=== PATIENT | male | born 1940 | race Caucasian/White ===

== ENCOUNTER 2018-08-22 11:36 | Outpatient (REF) | payer MEDICARE, BC, SELFPAY ==
[2018-08-22 19:28] LABS: Anion Gap 6.1 mmol/L (3-11); BUN 24 mg/dL (7-18); CO2 29.9 mmol/L (21.0-32.0); CREATININE 0.96 mg/dL (0.70-1.30); Calcium 9.1 mg/dL (8.5-10.1); Chloride 104 mmol/L (98-107); Glucose 89 mg/dL (70-100); Potassium 4.9 mmol/L (3.5-5.1); Sodium 140 mmol/L (136-145)
== END 2018-08-22 11:56 ==
LOC: NCHCN 11:36
PROVIDERS: PCP Physician Assistant; Visit Provider Physician Assistant Medical
DX: I10 Essential (primary) hypertension (principal)
CPT/HCPCS: 80048

== ENCOUNTER 2019-11-05 11:21 | Outpatient (REF) | payer MEDICARE, BC, SELFPAY ==
[2019-11-07 11:40] LABS: HIV-1/2 Ag & Ab Screen Negative (Negative)
[2019-11-07 11:44] LABS: Hepatitis C Ab w Rflx HCV PCR Negative (Negative)
[2019-11-07 12:15] LABS: Chlamydia Result Negative (Negative); GC Result Negative (Negative)
== END 2019-11-05 11:41 ==
LOC: NCHCN 11:21
PROVIDERS: PCP Physician Assistant; Visit Provider Nurse Practitioner Family
DX: Z11.3 Encounter for screening for infections with a predominantly sexual mode of transmission (principal); Z11.4 Encounter for screening for human immunodeficiency virus [HIV]; Z11.59 Encounter for screening for other viral diseases
CPT/HCPCS: 86803; 87389; 87491; 87591

== ENCOUNTER 2020-02-27 12:24 | Outpatient (REF) | payer MEDICARE, BC, SELFPAY ==
[2020-02-27 20:44] LABS: HCT 38.8 % (40.0-50.0); HGB 12.7 g/dL (13.5-17.5); Mean Corp. HGB Concentration 32.7 g/dL (32.0-36.0); Mean Corpuscular Hemoglobin 30.7 pg (27.0-33.0); Mean Corpuscular Volume 93.7 fL (80-95); Mean Platelet Volume 11.7 fL (8.0-11.0); Platelet Count 191 x1000/uL (130-400); RBC 4.14 m/cumm (4.50-6.00); RBC Distribution Width 13.9 % (11.8-14.1); White Blood Cell Count 3.96 k/cumm (4.4-10.8)
[2020-02-27 21:16] LABS: Anion Gap 5.1 mmol/L (3-11); BUN 22 mg/dL (7-18); CO2 30.9 mmol/L (21.0-32.0); CREATININE 1.12 mg/dL (0.70-1.30); Calcium 8.8 mg/dL (8.5-10.1); Chloride 106 mmol/L (98-107); Glucose 89 mg/dL (74-106); Potassium 4.7 mmol/L (3.5-5.1); Sodium 142 mmol/L (136-145)
[2020-02-29 09:58] LABS: PSA, Screening 3.5 ng/mL (0.0-6.5)
== END 2020-02-27 12:44 ==
LOC: NCHCN 12:24
PROVIDERS: PCP Physician Assistant; Visit Provider Nurse Practitioner Family
DX: I10 Essential (primary) hypertension (principal); R23.8 Other skin changes; N40.0 Benign prostatic hyperplasia without lower urinary tract symptoms; Z12.5 Encounter for screening for malignant neoplasm of prostate; R23.3 Spontaneous ecchymoses
CPT/HCPCS: 80048; 84153; 85027

== ENCOUNTER 2020-09-11 12:39 | Outpatient (REF) | payer MEDICARE, BC, SELFPAY ==
[2020-09-15 09:54] LABS: HSV Type 1 Ab, IgG Positive (Negative); HSV Type 2 Ab, IgG Negative (Negative)
[2020-09-15 10:11] LABS: Varicella IgG Antibody Positive (See Note)
== END 2020-09-11 12:59 ==
LOC: NCHCN 12:39
PROVIDERS: PCP Physician Assistant; Visit Provider Physician Assistant
DX: Z20.828 Contact with and (suspected) exposure to other viral communicable diseases (principal); Z11.59 Encounter for screening for other viral diseases
CPT/HCPCS: 86787; 86695; 86696

== ENCOUNTER 2021-02-20 18:55 | Outpatient (REF) | payer MEDICARE, BC, SELFPAY ==
[2021-02-20 19:40] LABS: BUN 23 mg/dL (7-18); CREATININE 1.1 mg/dL (0.70-1.30); Chloride 106 mmol/L (98-107); Glucose 92 mg/dL (74-106); Magnesium 2.3 mg/dL (1.8-2.4); Potassium 4.5 mmol/L (3.5-5.1); Sodium 141 mmol/L (136-145)
== END 2021-02-20 18:56 | disposition home or self-care (01) ==
LOC: NCHCN 18:55
PROVIDERS: PCP Physician Assistant; Visit Provider Internal Medicine
DX: I10 Essential (primary) hypertension (principal); M54.31 Sciatica, right side
CPT/HCPCS: 80048; 83735

== ENCOUNTER 2022-04-16 18:32 | Outpatient (REF) | payer MEDICARE, SELFPAY ==
[2022-04-16 18:53] LABS: Anion Gap 8.1 mmol/L (3-11); BUN 19 mg/dL (7-18); CO2 27.9 mmol/L (21.0-32.0); CREATININE 1.1 mg/dL (0.70-1.30); Calcium 9.5 mg/dL (8.5-10.1); Chloride 102 mmol/L (98-107); Glucose 85 mg/dL (74-106); Potassium 4.2 mmol/L (3.5-5.1); Sodium 138 mmol/L (136-145)
== END 2022-04-16 18:33 | disposition home or self-care (01) ==
LOC: NCHCN 18:32
PROVIDERS: PCP Physician Assistant; Visit Provider Internal Medicine
DX: I10 Essential (primary) hypertension (principal)
CPT/HCPCS: 80048

== ENCOUNTER 2023-04-20 20:46 | Outpatient (REF) | payer MEDICARE, SELFPAY ==
[2023-04-20 21:20] LABS: Abs Immature Grans 0.01 10^3/uL (0.0-0.06); Absolute Basophil Count 0.05 10^3/uL (0.0-0.2); Absolute Eosinophil Count 0.06 10^3/uL (0.0-0.7); Absolute Lymphocyte Count 0.71 10^3/uL (1.2-3.4); Absolute Monocyte Count 0.39 10^3/uL (0.1-0.8); Absolute Neutrophil Count 3.21 10^3/uL (1.2-6.7); Basophils % 1.1; Eosinophils % 1.4; HCT 43.9 % (40.0-50.0); HGB 14.6 g/dL (13.5-17.5); Immature Grans % 0.2; MCH 31.2 pg (27.0-33.0); MCHC 33.3 % (32.0-36.0); MCV 94 fL (80-95); MPV 11.7 fL (8.0-11.0); Monocytes % 8.8; Neutrophils % 72.5; Platelet Count 179 10^3/uL (130-400); RBC 4.68 10^6/uL (4.36-5.78); RDW 15.4 % (11.8-14.1); RDW-SD 53.3 fL; WBC 4.43 10^3/uL (4.4-10.8)
[2023-04-20 21:34] LABS: Iron 192 ug/dL (65-175); Total Iron Binding Capacity 397 ug/dL (250-450); Transferrin Sat 48 % (20-55)
[2023-04-20 21:43] LABS: ALT 26 U/L (16-63); AST 34 U/L (15-37); Albumin 3.4 g/dL (3.4-5.0); Alkaline Phosphatase 76 U/L (46-116); Anion Gap 5.8 mmol/L (3-11); BUN 20 mg/dL (7-18); Bilirubin, Total 0.5 mg/dL (0.2-1.0); CO2 31.2 mmol/L (21.0-32.0); CREATININE 1.1 mg/dL (0.70-1.30); Calcium 9.4 mg/dL (8.5-10.1); Chloride 103 mmol/L (98-107); Estimated GFR 67.86 (mL/min/1.73m2); Ferritin 28 ng/mL (26-388); Glucose 93 mg/dL (74-106); Potassium 4.6 mmol/L (3.5-5.1); Sodium 140 mmol/L (136-145); Total Protein 7.5 g/dL (6.4-8.2)
== END 2023-04-20 20:47 | disposition home or self-care (01) ==
LOC: NCHCN 20:46
PROVIDERS: PCP Physician Assistant; Visit Provider Internal Medicine
DX: Z86.2 Personal history of diseases of the blood and blood-forming organs and certain disorders involving the immune mechanism (principal); I10 Essential (primary) hypertension; D72.819 Decreased white blood cell count, unspecified; Z77.011 Contact with and (suspected) exposure to lead; F10.10 Alcohol abuse, uncomplicated
CPT/HCPCS: 80053; 82728; 83540; 83550; 83655; 85025

== ENCOUNTER 2024-04-23 14:46 | Outpatient (REF) | payer MEDICARE, SELFPAY ==
[2024-04-23 19:25] LABS: HCT 42.7 % (40.0-50.0); HGB 14.1 g/dL (13.5-17.5); MCH 31.1 pg (27.0-33.0); MCV 94 fL (80-95); MPV 12.1 fL (8.0-11.0); Platelet Count 165 10^3/uL (130-400); RBC 4.54 10^6/uL (4.36-5.78); RDW-SD 48.4 fL; WBC 4.94 10^3/uL (4.4-10.8)
[2024-04-23 20:28] LABS: Anion Gap 5.9 mmol/L (3-11); BUN 13 mg/dL (7-18); CO2 30.1 mmol/L (21.0-32.0); Calcium 9.7 mg/dL (8.5-10.1); Calculated LDL 104 mg/dL (<100); Chloride 104 mmol/L (98-107); Cholesterol 240 mg/dL (<200); Estimated GFR 75.61 (mL/min/1.73m2); Glucose 103 mg/dL (74-106); HDL Cholesterol 128 mg/dL (40-60); Potassium 4.8 mmol/L (3.5-5.1); Sodium 140 mmol/L (136-145); Triglyceride 41 mg/dL (<150)
== END 2024-04-23 14:47 | disposition home or self-care (01) ==
LOC: NCHCN 14:46
PROVIDERS: PCP Physician Assistant; Visit Provider Internal Medicine
DX: I10 Essential (primary) hypertension (principal); E78.5 Hyperlipidemia, unspecified; R78.71 Abnormal lead level in blood; Z77.011 Contact with and (suspected) exposure to lead
CPT/HCPCS: 80048; 80061; 85027; 83655

== ENCOUNTER 2025-04-25 14:21 | Outpatient (REF) | payer MEDICARE, SELFPAY ==
[2025-04-25 19:23] LABS: Anion Gap 3.3 mmol/L (3-11); BUN 18 mg/dL (7-18); CO2 31.7 mmol/L (21.0-32.0); Calcium 9.6 mg/dL (8.5-10.1); Chloride 105 mmol/L (98-107); Estimated GFR 75.14 (mL/min/1.73m2); Glucose 102 mg/dL (74-106); Potassium 4.8 mmol/L (3.5-5.1); Sodium 140 mmol/L (136-145)
== END 2025-04-25 14:22 | disposition home or self-care (01) ==
LOC: NCHCN 14:21
PROVIDERS: PCP Physician Assistant; Visit Provider Internal Medicine
DX: Z77.011 Contact with and (suspected) exposure to lead (principal)
CPT/HCPCS: 80048; 83655

== ENCOUNTER 2025-05-16 18:32 | Outpatient (REF) | payer MEDICARE, SELFPAY ==
--- NOTE | 2025-05-16 15:20 | SKI_PTH ---
PATIENT: Kevin Campos LOC: [facility] U#:[id number] AGE/SX: 84/M ROOM: RE05/16/[address]: Michael Calixto : 1940 BED: DIS: 05/16/2025 SPEC #: [id number] RECD: 05/17/25 12:19 STATUS: ADOLFO REKailash #: [id number] ANTONELLA: 05/16/25 15:[address]: Michael Calixto DEPT: Surgical Specimen RECD BY: Temitope Moreau ENTERED: 05/17/25 12:20 SP TYPE: BRANDY UMNOZ DR: Jaciel Martinez Tissues: 1 - SKIN BIOPSY(SHAVE/PUNCH) Procedures: SKIN LEVEL 4 Comments: [id number]
== END 2025-05-16 18:33 | disposition home or self-care (01) ==
LOC: LBN 18:32
PROVIDERS: PCP Physician Assistant; Visit Provider Internal Medicine
DX: C44.521 Squamous cell carcinoma of skin of breast (principal); C44.319 Basal cell carcinoma of skin of other parts of face
CPT/HCPCS: 88305